=== PATIENT | female | born 1960 | race Caucasian/White ===

== ENCOUNTER 2017-02-08 05:34 | Outpatient (CLI) | payer BC ==
[~2017-02-08] VITALS: Ht 157.5 cm; Wt 129.3 kg
[2017-02-08] MEDS ORDERED: DEXL60CA PO (14:45)
[2017-02-08] MEDS ORDERED: CHRO1000 PO (14:45)
[2017-02-08] MEDS ORDERED: METH54TA4 PO (14:45)
[2017-02-08] MEDS ORDERED: MULT-35 PO (14:45)
[2017-02-08] MEDS ORDERED: [UNRECOGNIZED DRUG - OTHER] PO (14:45)
[2017-02-08] MEDS ORDERED: ASPI-999 PO (14:45)
[2017-02-08] MEDS ORDERED: PARO30TA74 PO (14:45)
== END 2017-02-08 14:59 ==
LOC: PREOP 05:34 → EDUNIT# 14:30 → PREOP 14:59
PROVIDERS: ATTEND Obstetrics & Gynecology
DX: Z01.818 Encounter for other preprocedural examination (principal); N95.0 Postmenopausal bleeding; N84.0 Polyp of corpus uteri

== ENCOUNTER 2017-02-14 09:32 | Day surgery (SDC) | payer BC, OTHER ==
[~2017-02-14] VITALS: Ht 157.5 cm; Wt 129.3 kg
[2017-02-14] MEDS: LACTATED RINGERS 1,000 ML IV PRN ×2 (08:10→12:55)
[~2017-02-14 09:32] MED LIST: ASPI-999 PO; CHRO1000 PO; DEXL60CA PO; METH54TA4 PO; MULT-35 PO; PARO30TA74 PO; [UNRECOGNIZED DRUG - OTHER] PO
[2017-02-14 10:09] VITALS: BP 146/72
[2017-02-14] MEDS ORDERED: FAMOTIDINE 20MG/2ML IV (PEPCID) IV ONE (10:15)
[2017-02-14] MEDS ORDERED: ROCURONIUM 50 MG/5 ML (ZEMURON) VIAL IV ONE (11:00)
[2017-02-14] MEDS ORDERED: MIDAZOLAM 2 MG/2 ML (VERSED) VIAL ONE (11:00)
[2017-02-14] MEDS ORDERED: proPOfol 200 MG/20 ML (DIPRIVAN) VIAL IV ONE (11:00)
[2017-02-14] MEDS ORDERED: DEXAMETHASONE PF 10 MG/ML (DECADRON) VIAL ONE (11:00)
[2017-02-14] MEDS ORDERED: fentaNYL INJECTION 100 MCG/2 ML AMP ONE (11:00)
--- NOTE | 2017-02-14 11:01 | Progress Note-Pre Operative ---
Pre-Operative Progress Note H&P Reviewed The H&P was reviewed, patient examined and no changes noted. Time Seen by Provider: 10:25 Date H&P Reviewed: Feb 14, 2017 Time H&P Reviewed: 10:25 Pre-Operative Diagnosis: Postmenopausal bleeding, endometrial polyp, obesity EVANGELINA PALOMARES MD Feb 14, 2017 11:01
[2017-02-14] MEDS ORDERED: IBUP-1773 PO (11:02)
[2017-02-14] MEDS ORDERED: D5 LR IV SOLUTION 1,000 ML IV SCH (11:03)
--- NOTE | 2017-02-14 11:03 | Discharge Inst-Women's Service ---
Discharge Inst-Women's Serv Depart Medication/Instructions New, Converted or Re-Newed RX: RX on Chart Final Diagnosis Postmenopausal bleeding, endometrial polyp, obesity Consults/Follow Up Additional Follow Up: Yes Orders/Referrals 2-[address] Maciel Activity Activity: Activity as Tolerated Driving Instructions: No Driving for 24 Hours NO SMOKING: NO SMOKING Nothing Inside Vagina: No Douching, No [place], No Tampons Diet Discharge Diet: No Restrictions Symptoms to Report to : Bleeding Excessive, Pain Increased, Fever Over 101 Degrees F, Pain/Pressure in Chest, Pain/Pressure in Jaw, Dizziness/Fainting, Nausea/Vomiting, Shortness of Breath For Any Problems or Questions: Contact Your Physician, Go to Emergency Room EVANGELINA MACIEL MD Feb 14, 2017 11:03
[2017-02-14] MEDS ORDERED: LIDOCAINE PF 2% 5 ML (XYLOCAINE) VIAL ONE (11:04)
[2017-02-14] MEDS ORDERED: HYDROcodone/APAP 5 MG/325 MG (LORTAB) TAB PO PRN (11:15)
[2017-02-14] MEDS ORDERED: KETOROLAC 30 MG/ML VIAL IVP ONE (11:15)
[2017-02-14] MEDS ORDERED: ONDANSETRON 4 MG/2 ML (SDV) Z0FRAN IVP PRN ×2 (11:15→13:30)
--- NOTE | 2017-02-14 11:15 | OB/GYN Operative Report ---
Operative Report Date of Procedure: February 14, 2017 Preoperative Diagnosis: Postmenopausal bleeding, obesity, endometrial polyp Postoperative Diagnosis: Same plus incidental uterine perforation Procedure: Hysteroscopy, endometrial polypectomy, diagnostic laparoscopy Surgeon: Evangelina Maciel MD Anesthesia: General Specimens: Endometrial curettings to pathology Estimated Blood Loss: Minimal Indications for Procedure: This is a 56 y/o postmenopausal female with postmenopausal bleeding. Endometrial biopsy was performed in office and endometrial polyp was noted on pathology. She was counseled on proceeding to the OR for definitive diagnosis to ensure no hyperplasia/malignancy within the polyp itself with complete removal. Findings: Large endometrial polyp with otherwise normal appearing endometrial cavity with bilateral tubal ostia visualized, somewhat proliferative endometrium. No lesions noted. Upon diagnostic laparoscopy, noted uterine perforation in lower uterine segment which was hemostatic. Bowel and bladder appeared unremarkable (methylene blue instilled into bladder due to proximity to perforation and no methylene blue was noted either in vagina or peritoneal cavity). Procedure: The patient was taken to the operating room where sequential compression devices were placed on the bilateral lower extremities. Intravenous fluids were running. General anesthesia was obtained without difficulty. She was repositioned in the dorsal lithotomy position with the use of Yellofin stirrups. She was prepped and draped in the typical sterile fashion. The bladder was emptied with a straight catheterization yielding 50 cc of clear yellow urine. A weighted speculum was placed in the vagina. A right angle was utilized to elevate the vaginal tissue anteriorly. A single tooth tenaculum was placed on the anterior lip of the cervix. The uterus was sounded to 8cm. Pandey dilators were used to dilate the cervix to 17mm. The Truclear 5 mm hysteroscope was then advanced into the uterine cavity under direct visualization. The aforementioned findings were noted; the morcellator was then set up for polypectomy. This was utilized to perform polypectomy. Once the morcellator was removed, a sharp drop in pressure in the uterus was noted and there was concern for perforation. I could not obtain adequate visualization due to the drop in pressure however I did visualize fat which made me very concerned for perforation. I then informed our OR team that we would be performing diagnostic laparoscopy to evaluate for possible intraperitoneal injury, as I could not definitively say it did not occur during power morcellation. Fluid deficit at this time was noted to be 400 mL normal saline. The abdomen was then prepped and draped in the typical sterile fashion. Gloves were changed and attention was turned to the abdomen. An incision was made in the inferior aspect of the umbilicus to accommodate a 5 mm port site. The Veress needle was introduced into the abdomen but the intra-abdominal pressure was high. I thus, with bariatric instruments, elected to enter the abdominal cavity with the Visiport under direct visualization. The abdomen was then insufflated to a pressure of 15mmHg with CO2 gas. An abdominal survey did demonstrate a uterine perforation at the lower uterine segment. There was no active bleeding. I did examine the nearby bowel and omentum and other structures carefully and saw no evidence of injury. A mina catheter was placed in the bladder at this time and it was backfilled with 200 cc of methylene blue with saline. There was no evidence of extravasation, even after watching at a low intraperitoneal pressure. Floseal was placed over the perforation and was again noted to be hemostatic. The gas was allowed to escape the abdomen and the ports were removed. The skin was closed with dermabond. I then removed the mina catheter, and the tenaculum from the cervix. The anterior lip of the cervix was hemostatic after tenaculum removal. I did carefully examine the vagina for evidence of methylene blue with a sponge and there was none. The patient tolerated the procedure well. Instrument counts were correct. The patient was taken to recovery in stable condition. Complications: None Disposition: Home, stable EVANGELINA MACIEL MD Feb 14, 2017 11:15
[2017-02-14] MEDS ORDERED: SEVOFLURANE (ULTANE) 15 ML INHAL SOLN ONE ×6 (11:27→13:00)
[2017-02-14] MEDS ORDERED: ceFAZolin 1,000 MG (ANCEF) VIAL ONE (12:03)
[2017-02-14] MEDS ORDERED: METHYLENE BLUE 1% INJ 1 ML AMP ONE (12:38)
[2017-02-14] MEDS ORDERED: BUP/EPI 0.25% 1:200,000 (MARCAINE) 10 ML VIAL IJ ONE (12:50)
[2017-02-14] MEDS ORDERED: NEOSTIGMINE (BLOXIVERZ ) 1 MG/1ML 10 ML VIAL ONE (12:56)
[2017-02-14] MEDS ORDERED: GLYCOPYRROLATE 0.2 MG/ML (ROBINUL) 2 ML VIAL ONE (12:56)
[2017-02-14] MEDS ORDERED: METHYLENE BLUE 1% INJ 1 ML AMP IV ONE (13:00)
[2017-02-14] MEDS ORDERED: HYDR-3820 PO (13:11)
[2017-02-14] MEDS ORDERED: LACTATED RINGERS 2,000 ML IV ONE (13:12)
[2017-02-14] MEDS ORDERED: morphine INJ 10 MG/ML 1ML (SYR OR VIAL) IVP PRN (13:30)
[2017-02-14] MEDS ORDERED: KETOROLAC 30 MG/ML VIAL ONE (13:32)
[2017-02-14 14:20] VITALS: BP 152/72
[2017-02-14 14:50] VITALS: BP 156/87
[2017-02-14 15:20] VITALS: BP 139/61
[2017-02-14 16:15] VITALS: BP 139/61
== END 2017-02-14 16:15 | disposition home or self-care (01) ==
LOC: SDC 09:32
PROVIDERS: ATTEND Obstetrics & Gynecology
DX: N84.0 Polyp of corpus uteri (principal); N95.0 Postmenopausal bleeding; E66.01 Morbid (severe) obesity due to excess calories; Z68.43 Body mass index [BMI] 50.0-59.9, adult; K21.9 Gastro-esophageal reflux disease without esophagitis
CPT/HCPCS: 87081

== ENCOUNTER → 2017-02-22 | Outpatient (CLI) | payer BC ==
[~2017-02-22] MED LIST changes: +CATHETER FLUSH 10 ML SYR IV PRN; +HYDR-3820 PO; +IBUP-1773 PO; +IOHEXOL 350 MG/ML 100 ML (OMNIPAQUE 350) VIAL IV ONE; +NS 100 ML (IVPB) BAG IV ONE
--- NOTE | 2017-02-22 12:33 | Diagnostic Imaging Report ---
PROCEDURE: CT abdomen and pelvis with and without contrast. TECHNIQUE: Precontrast acquisitions were acquired through the abdomen and pelvis. Multiple contiguous axial images were obtained through the abdomen and pelvis after the administration of intravenous contrast. INDICATION: Abdominal pain. Recent surgery 100 mL of Omnipaque 350 is administered intravenously. FINDINGS: The lung bases appear clear. The liver, the gallbladder, the pancreas and the adrenal glands appear unremarkable. The spleen is mildly enlarged measuring 14.7 CM in length. The kidneys have symmetric enhancement and contrast excretion. There is no hydronephrosis. The abdominal aorta is normal in caliber. The uterus and adnexa appear grossly unremarkable. No significantly enlarged lymph node is seen. The urinary bladder demonstrate mild wall thickening which could be related to underdistention. There is a partial filling of the urinary bladder with contrast in the delayed phase imaging with no abnormality seen. There is suggestion of a small fat-containing umbilical hernia. Small amount of fluid density is seen also along the umbilicus region. There is a small amount of free fluid in the peritoneal cavity within the abdomen and pelvis. There is a colonic diverticulosis. Fatty stranding around the pelvis is perhaps related to recent surgery rather than diverticulitis. There is no focal hematoma or abscess identified. The osseous structures appear grossly unremarkable. Impression: 1. There is a small ascites, perhaps secondary to recent surgery and mild inflammation in the pelvis. 2. There is sigmoid diverticulosis. The surrounding tissue edema is probably postoperative rather than related to diverticulitis. Correlate clinically and with followup exams if needed. 3. Small fat-containing umbilical hernia. Dictated by: Dictated on workstation # [id number]
== END ==
LOC: RAD 10:40
PROVIDERS: ATTEND Obstetrics & Gynecology
DX: K57.30 Diverticulosis of large intestine without perforation or abscess without bleeding (principal); K42.9 Umbilical hernia without obstruction or gangrene; G89.18 Other acute postprocedural pain; R10.31 Right lower quadrant pain
CPT/HCPCS: 74178

== ENCOUNTER 2022-10-11 01:20 | Observation (INO) | payer BC ==
[~2022-10-11] VITALS: Ht 162 cm; Wt 136.0 kg
[2022-10-11] VITALS (9 sets, daily range): BP systolic 142–174; BP diastolic 69–101
[~2022-10-11 01:20] MED LIST changes: +ACHYD1T PO; -CATHETER FLUSH 10 ML SYR IV PRN; -HYDR-3820 PO; -IOHEXOL 350 MG/ML 100 ML (OMNIPAQUE 350) VIAL IV ONE; -NS 100 ML (IVPB) BAG IV ONE; -PARO30TA74 PO; +PARO30TA96 PO
--- NOTE | 2022-10-11 01:47 | History & Physical-Surgical ---
History of Present Illness History of Present Illness Reason for visit/HPI CC: Acute appendicitis/RLQ abdominal pain. 62 year old female with pain that was all over about 3 days ago. Slight uncomfortable cramping pain that then migrated to the right lower quadrant and stayed. Now moderate to severe sharp knife type pain. Movement makes worse. Laying still makes better. Having some nausea no emesis. Denies fever. Had ct scan at [facility] that was consistent with acute appendicitis. Date of Admission Today Date Seen by a Provider: Oct 11, 2022 Time Seen by a Provider: 01:44 I consulted on this patient on 10/11/22 01:41 Attending Physician Willian Coleman MD Admitting Physician Admitting Physician: Attending Physician: Mike Lange DO Consult Allergies and Home Medications Allergies Coded Allergies: No Known Drug Allergies (Unverified , 02/08/17) Patient Home Medication List Home Medication List Reviewed: Yes Aspirin (Aspirin) 81 Mg Tab.chew, 81 MG PO DAILY, (Reported) Entered as Reported by: QUITA RAMIREZ on 02/08/17 1445 Chromium Picolinate (Chromium Picolinate) 1,000 Mcg Tablet, 1,000 MCG PO DAILY, (Reported) Entered as Reported by: QUITA RAMIREZ on 02/08/17 1445 Dexlansoprazole (Dexilant) 60 Mg Cap., 60 MG PO DAILY, (Reported) Entered as Reported by: QUITA RAMIREZ on 02/08/17 1445 Hydrocodone Bit/Acetaminophen (HYDROcodone/APAP 10/325 TABLET) 1 Each Tablet, 1 TAB PO Q4H PRN for PAIN Prescribed by: EVANGELINA PALOMARES on 02/14/17 1311 Ibuprofen (Ibuprofen) 600 Mg Tablet, 600 MG PO Q6H Prescribed by: EVANGELINA PALOMARES on 02/14/17 1102 Methylphenidate HCl (Concerta) 54 Mg Tab.er.24, 54 MG PO DAILY, (Reported) Entered as Reported by: QUITA RAMIREZ on 02/08/17 1445 Multivitamin (Daily Multiple Vitamin) 1 Each Tablet, 1 EACH PO DAILY, (Reported) Entered as Reported by: QUITA RAMIREZ on 02/08/17 1445 Paroxetine HCl (Paxil) 30 Mg Tablet, 30 MG PO DAILY, (Reported) Entered as Reported by: QUITA RAMIREZ on 02/08/17 1445 [Multi Fiber] , 1 CAP PO DAILY, (Reported) Entered as Reported by: QUITA RAMIREZ on 02/08/17 1445 Past Qsolxxm-Wnrdvx-Rsmvsk Hx Patient Social History Smoking Status: Never a Smoker Recent Hopitalizations: No Have you traveled recently?: No Seasonal Allergies Seasonal Allergies: No Surgeries Surgeries: Section, Orthopedic Respiratory History of Respiratory Disorde: No Cardiovascular History of Cardiac Disorders: No Neurological History of Neurological Disord: No Reproductive System Hx Reproductive Disorders: Yes (POST MENOPAUSAL BLEEDING) Sexually Transmitted Disease: No HIV/AIDS: No Female Reproductive Disorders: Menstrual Problems [employer] History: Menopausal Genitourinary History of Genitourinary Disor: No Gastrointestinal Gastrointestinal Disorders: Gastroesophageal Reflux Musculoskeletal Musculoskeletal Disorders: Arthritis HEENT Loss of Vision: Bilateral Hearing Impairment: Denies Psychosocial Behavioral Health Disorders: ADD/ADHD Blood Transfusions Adverse Reaction to a Blood Tr: Yes (YES) Reviewed Nursing Assessment Reviewed/Agree w Nursing PMH: Yes Family Medical History Significant Family History: No Pertinent Family Hx Review of Systems Constitutional: No chills, No diaphoresis EENTM: No blurred vision, No double vision Respiratory: No cough, No dyspnea on exertion Cardiovascular: No chest pain Gastrointestinal: RLQ, nausea; No vomiting Genitourinary: No decreased output, No discharge Musculoskeletal: No gout, No joint pain Skin: No change in color, No change in hair/nails Psychiatric/Neurological: Denies Anxiety, Denies Depressed, Denies Emotional Problems All Other Systems Reviewed Negative Unless Noted: Yes (Negative excepted noted.) Physical Exam Vital Signs Vital Signs - First Documented 10/11/22 01:23 Temp 36.4 Pulse 86 Resp 18 B/P (MAP) 142/82 (102) Pulse Ox 98 O2 Delivery Room Air Capillary Refill : Less Than 3 Seconds Height, Weight, BMI Height: 5'2.00" Weight: 285lbs. 0.0oz. [id number]; 51.00 BMI Method: General Appearance: No Apparent Distress, Obese HEENT: PERRL/EOMI, Normal ENT Inspection Neck: Normal Inspection, Non Tender Respiratory: Chest Non Tender, No Accessory Muscle Use, No Respiratory Distress Cardiovascular: Regular Rate, Rhythm, No JVD Gastrointestinal: Soft, Tenderness (right lower quadrant) Rectal: Deferred Back: No CVA Tenderness Extremity: Normal Inspection, Non Tender Neurologic/Psychiatric: Alert, Oriented x3, Normal Mood/Affect Skin: Normal Color, Warm/Dry Lymphatic: No Adenopathy Assessment/Plan Assessment/Plan Admission Diagonsis rlq abdominal pain acute appendicitis obesity Admission Status: Observation Assessment/Plan rlq abdominal pain acute appendicitis obesity Patient with ct [facility] with acute appendicitis. We discussed risks and benefits of having laparoscopic appendectomy all other indicated procedures She understands and wishes to proceed. She just completed dose of Zosyn, will continue Zosyn postoperatively. NPO To or. MIKE LANGE DO Oct 11, 2022 01:47
[2022-10-11] MEDS ORDERED: BUP/EPI 0.5% 1:200,000 (SENSORCAINE) 30 ML VIAL ONE (02:15)
[2022-10-11] MEDS: LACTATED RINGERS 1,000 ML IV PRN ×2 (02:20→04:05)
[2022-10-11] MEDS ORDERED: fentaNYL INJ 100 MCG/2 ML AMP ONE ×2 (02:22→03:51)
[2022-10-11] MEDS ORDERED: MIDAZOLAM 2 MG/2 ML (VERSED) VIAL ONE (02:22)
[2022-10-11] MEDS ORDERED: BUP/EPI 0.5% 1:200,000 (SENSORCAINE) 30 ML VIAL INJ ONE (02:41)
[2022-10-11] MEDS ORDERED: ONDANSETRON 4 MG/2 ML (SDV) Z0FRAN ONE (03:54)
[2022-10-11] MEDS ORDERED: ROCURONIUM 50 MG/5 ML (ZEMURON) VIAL IV ONE (03:54)
[2022-10-11] MEDS ORDERED: LIDOCAINE PF 2% 5 ML (XYLOCAINE) VIAL ONE (03:54)
[2022-10-11] MEDS ORDERED: SUCCINYLCHOLINE INJ 20 MG/1 ML 10 ML VIAL ONE (03:54)
[2022-10-11] MEDS ORDERED: proPOfol 200 MG/20 ML (DIPRIVAN) VIAL IV ONE (03:54)
[2022-10-11] MEDS ORDERED: ESMOLOL 100 MG/10 ML (BREVIBLOC) VIAL ONE (04:43)
[2022-10-11] MEDS ORDERED: DESFLURANE (SUPRANE) 15 ML INHAL SOLN ONE (04:45)
[2022-10-11] MEDS ORDERED: morphine INJ 4 MG/ML 1 ML (VIAL/SYRINGE) IVP PRN (04:45)
[2022-10-11] MEDS ORDERED: GLYCOPYRROLATE 0.2 MG/ML (ROBINUL) 2 ML VIAL ONE (04:45)
[2022-10-11] MEDS ORDERED: ONDANSETRON 4 MG/2 ML (SDV) Z0FRAN IVP PRN ×2 (04:45→05:15)
[2022-10-11] MEDS ORDERED: SEVOFLURANE (ULTANE) 15 ML INHAL SOLN ONE (04:45)
[2022-10-11] MEDS ORDERED: NEOSTIGMINE (BLOXIVERZ ) 1 MG/1ML 10 ML VIAL ONE (04:45)
--- NOTE | 2022-10-11 04:49 | Progress Note-Post Operative ---
Post-Operative Progess Note Surgeon (s)/Amf Mechanic (s) Surgeon MIKE LANGE DO Amf Mechanic: na Pre-Operative Diagnosis acute appendicitis Post-Operative Diagnosis same Procedure & Operative Findings Date of Procedure 10/11/22 Procedure Performed/Findings PROCEDURE: Laparoscopic appendectomy. COMPLICATIONS: None. INDICATIONS: The patient is a 62 year old female who has been having right lower quadrant abdominal pain. Patient's exam consistent and cat scan with a ppendicitis. I discussed risk and benefits of laparoscopic appendectomy and all indicated procedures with the possibility being a normal appendix. The patient understands the risks and benefits and wishes to proceed. Consent was signed on the chart. DESCRIPTION OF PROCEDURE: The patient was taken to the operating suite, prepped and draped in a sterile fashion. Timeout was performed. Local anesthetic was infiltrated just above the umbilicus and 11-blade scalpel was used to make a skin incision. Cautery was used to dissect down to the fascia and scored. Kochers were used to grasp and elevate it and the abdomen was then entered. The balloon trocar was inserted into the abdomen and pneumoperitoneum was achieved. Under direct visualization of the laparoscope, a 5 mm trocar was placed in the suprapubic region and a 5 mm trocar was placed in the left lower quadrant. Appendix was located, inflamed fibrosed right lower quadrant. Blunt dissection was used to begin freeing the base of the appendix. The base of the appendix was dissected around. Once at the base an Endo-JENIFER 2.5 stapler was then fired across the base of the appendix. The mesoappendix was then divided hugging the appendix with ligasure. It was then placed in an Endobag and removed through the 12 mm trocar site. Phlegmon was around the area of the appendix. The abdomen was then irrigated and suctioned. A 19 bernadette drain was placed in the right lower quadrant and brought out through the left 5 mm trocar and secured. No other pathology noted. The abdomen was then desufflated and the trocars were removed. An 0 Vicryl was placed in a [id number] fashion for closure, closing the 12 mm fascial defect. The skin was then closed using 4-0 Monocryl in a subcuticular fashion. The abdomen was then washed and dried and Skin Affix was placed over the incisions. The patient tolerated the procedure well without any complications and was taken to the recovery room in stable condition. Anesthesia Type general Estimated Blood Loss Estimated blood loss (mL): 100 mL Specimens/Packing Specimens Removed appendix MIKE LANGE DO Oct 11, 2022 04:49
[2022-10-11] MEDS ORDERED: PIPERACILLIN SODIUM/TAZOBACTAM 4.5 GM in NS (IVPB) 100 ML IV ONE (05:00)
[2022-10-11] MEDS ORDERED: LABETALOL HCL 20 MG/4 ML VIAL IV PRN (05:15)
[2022-10-11] MEDS ORDERED: morphine INJ 10 MG/ML 1ML (SYR OR VIAL) IVP ONE (05:15)
--- NOTE | 2022-10-11 05:15 | Anesthesia-General Post-Op ---
General Patient Condition Mental Status/LOC: Same as Preop Cardiovascular: Satisfactory Nausea/Vomiting: Absent Respiratory: Satisfactory Pain: Controlled Complications: Absent Post Op Complications Complications None Follow Up Care/Instructions Patient Instructions None needed. Anesthesia/Patient Condition Patient Condition Patient is doing well, no complaints, stable vital signs, no apparent adverse anesthesia problems. No complications reported per nursing. IMTIAZ DIOR CRNA Oct 11, 2022 05:15
[2022-10-11] MEDS ORDERED: morphine INJ 10 MG/ML 1ML (SYR OR VIAL) ONE (05:16)
[2022-10-11] MEDS: LACTATED RINGERS 1,000 ML IV SCH ×2 (05:21→10:13)
[2022-10-11] MEDS: HYDROcodone/APAP 5 MG/325 MG (LORTAB) TAB PO PRN ×2 (06:29→13:00)
[2022-10-11] MEDS ORDERED: PIPERACILLIN SODIUM/TAZOBACTAM 4.5 GM in NS (IVPB) 100 ML IV SCH (11:00)
[2022-10-11] MEDS ORDERED: ACHD5005 PO (15:14)
[2022-10-11] MEDS ORDERED: AMOX1TAB12 PO (15:14)
--- NOTE | 2022-10-11 15:16 | Discharge Inst-Simple/Standard ---
Discharge Inst-Standard Discharge Medications New, Converted or Re-Newed RX: Transmitted to Pharmacy Patient Instructions/Follow Up Plan of Care/Instructions/FU: 2 weeks Primitivo. When drain is less than 30 mL in 24 hours, notify the office so they can remove it. Activity as Tolerated: No Discharge Diet: Regular Diet Other Inst to Patient Follow up Appt: Make appointment for 2 week. Instructions: No lifting greater than 10 pounds. No strenuous activity. May shower in 24 hours, no tub bath or soaking. Use incentive spirometer at home as directed. No Smoking Skin/Wound Care: You have special glue over your incision that will fall off on it's own. When drain is less than 30 mL in 24 hours notify the office so it can be removed. Symptoms to Report: Appetite Changes, Extremity Discoloration, Numbness/Tingling, Swelling Increased, Bleeding Excessive, Eyesight Changes, Pain Increased, Urine Color Change, Constipation(Persistent), Fever over 101 degree F, Pain/Pressure in chest, Urinating Difficulty, Cough Up/Vomit Blood, Heart Beat Irreg/Pounding, Pain/Pressure in jaw, Vaginal Bleeding Increase, Cramps in feet or legs, Lightheadedness, Pain/Pressure in shoulder, Diarrhea(Persistent), Memory Changes Suddenly, Questions/Concerns, Weight gain consecutive days, Dizziness/Fainting, Nausea/Vomiting, Shortness of Breath, Weight gain over 2 pounds If questions or concerns contact your physician Or seek help at emergency department. MIKE LANGE DO Oct 11, 2022 15:16
== END 2022-10-11 15:42 | disposition home or self-care (01) ==
LOC: EDUNIT# 01:20 → ER 01:22 → SDC 01:31 → 4TH 01:54
PROVIDERS: ADMIT Surgery; ATTEND Surgery
DX: K35.80 Unspecified acute appendicitis (principal); E66.01 Morbid (severe) obesity due to excess calories; Z68.43 Body mass index [BMI] 50.0-59.9, adult
CPT/HCPCS: 94664; 96366; 96376; 99283